=== PATIENT | female | born 1990 | race Caucasian/White ===

== ENCOUNTER → 2019-08-26 18:26 | Outpatient (CLI) | payer OTHER, SELFPAY | PROVIDERS: Visit Provider Nurse Practitioner | DX: R30.0 Dysuria (principal) | CPT/HCPCS: 87086 ==

== ENCOUNTER → 2022-06-21 11:08 | Outpatient (CLI) | payer OTHER, SELFPAY ==
--- NOTE | 2022-06-21 11:12 | DI.MRI.S_ITS ---
PROCEDURE: MR CERVICAL SPINE WO CON INDICATIONS: Cervicogenic headache TECHNIQUE: Noncontrast sagittal T1 spin echo and T2 fast spin echo, sagittal STIR, foraminal oblique sagittal T2 fast spin echo, and axial gradient echo or T2 fast spin echo through the cervical spine. COMPARISON: None. FINDINGS: Image quality: Excellent. Alignment and Curvature: There is normal bony alignment. Bone Marrow: Marrow demonstrates normal overall signal. Spinal Cord: Visualized spinal cord has normal size and signal. No cerebellar tonsillar herniation. Paraspinous Soft Tissues: No paravertebral masses. Prevertebral soft tissues are normal in thickness. C2-C3: No significant disc bulge. The foramina and central canal are patent. C3-C4: No significant disc bulge. The foramina and central canal are patent. C4-C5: Diffuse disc bulge with no significant foraminal or central canal stenosis. C5-C6: Diffuse disc bulge with no significant foraminal or central canal stenosis. C6-C7: No significant disc bulge. The foramina and central canal are patent. C7-T1: No significant disc bulge. The foramina and central canal are patent. IMPRESSION: No significant disc disease. No significant foraminal or central canal stenosis. Dictated by: Yogesh Solano M.D. on 06/23/2022 at 8:35 Approved by: Yogesh Solano M.D. on 06/23/2022 at 8:43
== END ==
PROVIDERS: PCP Student in an Organized Health Care Education/Training Program; Referring Provider Physical Medicine & Rehabilitation; Visit Provider Physical Medicine & Rehabilitation
DX: G44.86 Cervicogenic headache (principal)
CPT/HCPCS: 72141

== ENCOUNTER → 2025-07-31 16:42 | Outpatient (CLI) | payer OTHER, SELFPAY ==
--- NOTE | 2025-07-31 | DI.MRI.S_ITS ---
PROCEDURE: MR CERVICAL SPINE WO CON INDICATIONS: NECK PAIN AND TORRES TECHNIQUE: Noncontrast sagittal T1 spin echo and T2 fast spin echo, sagittal STIR, foraminal oblique sagittal T2 fast spin echo, and axial gradient echo or T2 fast spin echo through the cervical spine. COMPARISON: [facility], MR, MR CERVICAL SPINE WO CON, 06/21/2022, 11:20. FINDINGS: Image quality: Excellent. Alignment and Curvature: Straightening of the normal cervical lordosis. Bone Marrow: Marrow demonstrates normal overall signal. Spinal Cord: Visualized spinal cord has normal size and signal. Chiari 1 malformation is redemonstrated. Paraspinous Soft Tissues: No paravertebral masses. Prevertebral soft tissues are normal in thickness. C2-C3: No central canal or neural foraminal stenosis. C3-C4: No central canal or neural foraminal stenosis. C4-C5: Mild posterior disc osteophyte complex. No central canal or neural foraminal stenosis. C5-C6: Mild posterior disc osteophyte complex. No central canal or neural foraminal stenosis. C6-C7: No central canal or neural foraminal stenosis. C7-T1: No central canal or neural foraminal stenosis. IMPRESSION: Minimal degenerative changes without central canal or neural foraminal stenosis. Stable compared to prior exam. Approved by: Chance Perez M.D. on 08/01/2025 at 8:01
--- NOTE | 2025-07-31 16:45 | DI.MRI.S_ITS ---
PROCEDURE: MR HEAD/BRAIN WO CON INDICATIONS: ongoing migraines TECHNIQUE: Noncontrast axial T1 spin echo, axial T2 fast spin echo, sagittal and axial FLAIR, coronal T2 fast spin echo, axial gradient echo, axial diffusion and ADC through the brain. COMPARISON: None. FINDINGS: Image quality: Excellent. CSF Spaces: Basal cisterns are patent. No extra-axial fluid collections. Ventricles are normal in size and shape. 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 No intracranial masses or hemorrhage. [place]/white matter interface is normal. Brainstem appears normal. Diffusion-weighted images demonstrate no acute infarct. No chronic ischemic insults. Normal intravascular flow voids are present. Skull and face: Calvarium has normal marrow signal. Orbits appear normal. Sinuses: Sinuses and mastoids are clear. IMPRESSION: Incidental note of Chiari 1 malformation. No acute intracranial abnormalities. The brain is otherwise normal in appearance. Dictated by: Chance Perez M.D. on 08/01/2025 at 7:55 Approved by: Chance Perez M.D. on 08/01/2025 at 7:58
== END ==
LOC: MRI 16:44
PROVIDERS: PCP Family Medicine; Referring Provider Family Medicine; Visit Provider Family Medicine
DX: G43.009 Migraine without aura, not intractable, without status migrainosus (principal); G93.5 Compression of brain; M54.12 Radiculopathy, cervical region; G24.3 Spasmodic torticollis
CPT/HCPCS: 70551; 72141